=== PATIENT | female | born 1940 | race Caucasian/White ===

== ENCOUNTER 2017-06-26 10:10 | Day surgery (SDC) | payer MEDICARE, OTHER ==
[~2017-06-26] VITALS: Ht 165.1 cm; Wt 85.8 kg
[~2017-06-26 10:10] MED LIST: ASPI325 PO; ASPI325EC PO; ATOR40TA PO; CALCIUM 600 +1 EA11 PO; CHOL10002 PO; Calcitonin-Sal3.7 ML; DOCSEN PO; ERGO400; Estring1 EACH VG; FAMO20 PO; FERR325 PO; FOLI1 PO; FURO100EL; FURO40 PO; FURO80; HYDCHL25 PO; K-Dur20 MEQ; LOSA50 PO; MELA3 PO; METO25ER PO; METO50 PO; Miacalcin I200 IU/ML; POTA10T; POTCHL20ER PO; SENN187 PO; SPIR25 PO; SYNTHROID112 MCG PO; TOCO1000 PO; VIT1CAPS12; VIT1CAPS12 PO; Vitamin B Comple1 EA PO; [UNRECOGNIZED DRUG - OTHER]
== END 2017-06-26 12:17 | disposition home or self-care (01) ==
LOC: ORSCSDS 10:10
PROVIDERS: Ophthalmology
PROC: 08RK3JZ Replacement of Left Lens with Synthetic Substitute, Percutaneous Approach (ICD-10-PCS; principal; 2017-06-26 11:30)
DX: H25.12 Age-related nuclear cataract, left eye (principal); I10 Essential (primary) hypertension; E78.5 Hyperlipidemia, unspecified; E07.9 Disorder of thyroid, unspecified; I25.10 Atherosclerotic heart disease of native coronary artery without angina pectoris; Z79.82 Long term (current) use of aspirin; Z79.899 Other long term (current) drug therapy
CPT/HCPCS: J2250; J3010; J7040; V2632

== ENCOUNTER → 2020-03-23 | Outpatient (CLI) | payer MEDICARE, OTHER ==
[2020-03-23 12:15] LABS: Protein, Urine Quantitative <5.0 mg/dL (0.0-11.9)
== END | disposition home or self-care (01) ==
LOC: LAB SHORT 09:29 → LAB 09:29 → LAB FUT 03-20 10:40
PROVIDERS: Internal Medicine Nephrology
DX: N18.30 Chronic kidney disease, stage 3 unspecified (principal); D63.1 Anemia in chronic kidney disease; N25.81 Secondary hyperparathyroidism of renal origin; E55.9 Vitamin D deficiency, unspecified; E78.00 Pure hypercholesterolemia, unspecified; D50.9 Iron deficiency anemia, unspecified; D51.8 Other vitamin B12 deficiency anemias; D52.8 Other folate deficiency anemias; R73.09 Other abnormal glucose; R76.9 Abnormal immunological finding in serum, unspecified; R94.5 Abnormal results of liver function studies; R94.6 Abnormal results of thyroid function studies
CPT/HCPCS: 81050; 82043; 82570; 84156

== ENCOUNTER 2020-10-13 08:29 | Day surgery (SDC) | payer MEDICARE, OTHER ==
[~2020-10-13] VITALS: Ht 167.6 cm; Wt 88.2 kg
[~2020-10-13 08:29] MED LIST changes: +ALDACTONE25 MG PO; +ASPIR 8181 M1 PO; +TORSE20 PO; +Vitamin E100 UNIT PO
[2020-10-13] MEDS ORDERED: MIRALAX17 G7 (09:09)
--- NOTE | 2020-10-13 09:23 | NUR ---
10/13/20 0923 Eleonora Kenyon PATIENT TOOK SUTAB AND TOLERATED IT WELL. FIRST IV ATTEMPT MISSED BY MA IN RIGHT HAND. SECOND ATTEMPT MISSED BY MA IN THE RIGHT FOREARM. THIRD ATTEMPT MISSED IN THE RIGHT FOREARM. FOURTH ATTEMPT SUCCESSFUL BY MA IN RIGHT FOREARM.
== END 2020-10-13 10:33 | disposition home or self-care (01) ==
LOC: ORSCSDS 08:29
PROVIDERS: Internal Medicine Gastroenterology
PROC: 0DBH8ZX Excision of Cecum, Via Natural or Artificial Opening Endoscopic, Diagnostic (ICD-10-PCS; principal; 2020-10-13 09:45)
DX: Z12.11 Encounter for screening for malignant neoplasm of colon (principal); Z86.010 Personal history of colon polyps; Z80.0 Family history of malignant neoplasm of digestive organs; D12.0 Benign neoplasm of cecum; K57.30 Diverticulosis of large intestine without perforation or abscess without bleeding; E66.9 Obesity, unspecified; Z68.32 Body mass index [BMI] 32.0-32.9, adult; Z79.82 Long term (current) use of aspirin; Z79.899 Other long term (current) drug therapy
CPT/HCPCS: 88305; J2704; J7120

== ENCOUNTER → 2021-05-28 | Outpatient (CLI) | payer MEDICARE, OTHER ==
[~2021-05-28] MED LIST changes: +MIRALAX17 G7
[2021-05-28 14:28] LABS: Sodium, Urine 44 mmol/L (20-110)
[2021-05-28 14:37] LABS: Protein, Urine Quantitative <5.0 mg/dL (0.0-11.9)
== END | disposition home or self-care (01) ==
LOC: LAB SHORT 07:30
PROVIDERS: Internal Medicine Nephrology
DX: N18.30 Chronic kidney disease, stage 3 unspecified (principal); D63.1 Anemia in chronic kidney disease; E55.9 Vitamin D deficiency, unspecified; E78.00 Pure hypercholesterolemia, unspecified; E27.0 Other adrenocortical overactivity; G60.9 Hereditary and idiopathic neuropathy, unspecified; R76.9 Abnormal immunological finding in serum, unspecified; R94.5 Abnormal results of liver function studies
CPT/HCPCS: 81050; 82570; 84156; 84300

== ENCOUNTER → 2025-02-18 | Outpatient (CLI) | payer MEDICARE ==
[2025-02-18 16:37] LABS: Albumin, Blood 3.7 g/dL (3.4-5.0); Anion Gap 6 mmol/L (3-11); Blood Urea Nitrogen 15 mg/dL (8-24); CO2, Blood 32 mmol/L (21-32); Calcium, Blood 9.4 mg/dL (8.5-10.1); Chloride, Blood 105 mmol/L (98-108); Creatinine, Blood 1.03 mg/dL (0.40-1.00); Glucose, Blood 103 mg/dL (70-99); Phosphorus, Blood 3.6 mg/dL (2.5-4.9); Potassium, Blood 4.5 mmol/L (3.5-5.5); Sodium, Blood 138 mmol/L (136-145); Thyroid Stimulating Hormone 0.422 uIU/mL (0.360-4.800)
== END | disposition home or self-care (01) ==
LOC: LAB SHORT 13:47 → LAB 13:47
PROVIDERS: Internal Medicine
DX: E03.9 Hypothyroidism, unspecified (principal); I10 Essential (primary) hypertension
CPT/HCPCS: 80069; 84439; 84443